=== PATIENT | female | born 1960 ===

== ENCOUNTER 2017-04-02 08:54 | Outpatient (CLI) | payer OTHER ==
--- NOTE | 2017-04-02 09:29 | XRay Report ---
RIGHT KNEE RADIOGRAPHS INDICATION: Right knee pain. COMPARISON: None similar at this institution. FINDINGS: AP, lateral, oblique and tunnel views of the right knee demonstrate intact articulation. Mild tibial spine degenerative spurring. No suprapatellar effusion. CONCLUSION: Mild right knee osteoarthrosis, as described. Thank you for the opportunity to participate in this patient's care.
== END 2017-04-02 08:55 | disposition home or self-care (01) ==
LOC: SPVIMAG 08:54
PROVIDERS: ATTEND Family Medicine
DX: M17.11 Unilateral primary osteoarthritis, right knee (principal)